=== PATIENT | female | born 1935 | race Caucasian/White ===

== ENCOUNTER 2019-03-26 19:40 | Emergency (ER) | payer MEDICARE, MEDICAID ==
[~2019-03-26] VITALS: Ht 165.1 cm; Wt 72.7 kg
[~2019-03-26 19:40] MED LIST: ESZO1TAB11 PO; ISOS30TA9 PO; LISI1TAB32 PO; METO50TA16 PO; ROPI1TAB6 PO; TRAM50TA2 PO; ZOC40T PO
[2019-03-26 20:27] LABS: PARTIAL THROMBOPLASTIN TIME 25 SECONDS (22-32)
[2019-03-26 20:29] LABS: CLARITY,URINE CLEAR (Clear); COLOR,URINE YELLOW (Yellow); GLUCOSE, URINE NEGATIVE (Neg); KETONES,URINE NEGATIVE (Neg); LEUKOCYTE ESTERASE ,URINE NEGATIVE (Neg); NITRITES, URINE NEGATIVE (Neg); OCCULT BLOOD,URINE TRACE-INTACT (Neg); PROTEIN,URINE 100 mg/dl (Neg)
[2019-03-26 20:32] LABS: BASOPHILS % (AUTO) 0 % (0-1); HEMOGLOBIN 8.2 g/dl (12.0-16.0)
[2019-03-26 20:34] LABS: EOSINOPHILS % (AUTO) 0.1 % (0-6); HEMATOCRIT 23.8 % (35.0-45.0); LYMPHOCYTES # (AUTO) 0.1 X10'3 (1.1-4.8); LYMPHOCYTES % (AUTO) 1.2 % (21-51); MEAN CORPUSCULAR HEMOGLOBIN 36.3 PG (27.0-31.0); MEAN CORPUSCULAR HGB CONC 34.4 g/dL (33.0-36.5); MEAN CORPUSCULAR VOLUME 105.7 FL (78-98); MEAN PLATELET VOLUME 10.6 FL (7.4-10.4); MONOCYTES % (AUTO) 9.1 % (2-12); NEUTROPHILS # (AUTO) 9.6 X10'3 (1.8-7.7); NEUTROPHILS % (AUTO) 89.6 % (42-75); PLATELET COUNT 163 X10'3 (140-440); RED BLOOD COUNT 2.25 X10'6 (4.20-5.60); RED CELL DISTRIBUTION WIDTH 17.1 % (11.5-14.5); WHITE BLOOD COUNT 10.7 X10'3 (4.5-11.0)
[2019-03-26 20:43] LABS: UA COLLECTION TYPE STRAIGHT CATH
[2019-03-26 20:44] LABS: BACTERIA,URINE FEW /HPF (Neg); RBC,URINE 0-2 /HPF (0-2); SQUAMOUS EPITHELIAL CELL,UR FEW /LPF (FEW); WBC,URINE NONE SEEN /HPF (0-4)
[2019-03-26 21:00] LABS: ALANINE AMINOTRANSFERASE 28 U/L (12-78); ALBUMIN 3.6 G/DL (3.4-5.0); ALKALINE PHOSPHATASE 84 IU/L (46-116); ANION GAP 7 (8-16); ASPARTATE AMINO TRANSFERASE 21 U/L (10-37); BILIRUBIN,TOTAL 0.7 MG/DL (0.1-1.0); BLOOD UREA NITROGEN 32 MG/DL (7-18); BUN/CREATININE RATIO 21.9 (6.6-38.0); CHLORIDE 108 MMOL/L (99-107); CREATININE 1.46 MG/DL (0.40-0.90); GLUCOSE 200 MG/DL (70-104); POTASSIUM 4.2 MMOL/L (3.5-5.1); SODIUM 146 MMOL/L (135-145); TOTAL CARBON DIOXIDE 31.3 MMOL/L (24-32); TOTAL PROTEIN 7.2 G/DL (6.4-8.2); eGFR 34 ML/MIN
[2019-03-26] MEDS ORDERED: normal saline 1000ML IV soln IVB ONE ×2 (21:00→21:15)
[2019-03-26] MEDS ORDERED: CefTRIAXone 2gm/D5W 50ml 50 ML IV ONE (21:00)
[2019-03-26] MEDS ORDERED: albuterol 2.5 MG/3 ML nebule NEB ONE (21:00)
[2019-03-26] MEDS ORDERED: CEPH-572 PO (21:23)
[2019-03-26 21:25] LABS: ANISOCYTOSIS 1+; ELLIPTOCYTES FEW; PLATELET ESTIMATE NORMAL
[2019-03-26 21:26] LABS: STOMATOCYTES FEW
--- NOTE | 2019-03-26 21:26 | NUR ---
CALLED [facility] FOR TRANSPORT REQUESTING ALLEN
--- NOTE | 2019-03-26 21:38 | NUR ---
ekg shows some possible depression, informed Dr Hannon, doing an EKG.
[2019-03-26 23:13] VITALS: BP 108/63
== END 2019-03-26 23:20 | disposition home or self-care (01) ==
LOC: ER 19:40
DX: N17.9 Acute kidney failure, unspecified (principal); E86.0 Dehydration; I12.9 Hypertensive chronic kidney disease with stage 1 through stage 4 chronic kidney disease, or unspecified chronic kidney disease; N18.9 Chronic kidney disease, unspecified; E87.1 Hypo-osmolality and hyponatremia; J18.9 Pneumonia, unspecified organism; R41.82 Altered mental status, unspecified; I48.91 Unspecified atrial fibrillation; G89.29 Other chronic pain; Z85.3 Personal history of malignant neoplasm of breast; Z90.710 Acquired absence of both cervix and uterus; Z98.890 Other specified postprocedural states; Z60.2 Problems related to living alone; Z88.1 Allergy status to other antibiotic agents; Z88.8 Allergy status to other drugs, medicaments and biological substances; Z79.899 Other long term (current) drug therapy
CPT/HCPCS: 36415; 71045; 80053; 81001; 82948; 83605; 84145; 85025; 85610; 85730; 87040; 87502; 87503; 93005; 94640; 96365; 99291; J0696; J7030; 94760